=== PATIENT | female | born 1965 | race Hispanic/Latino ===

== ENCOUNTER → 2017-07-31 | Outpatient (CLI) | payer OTHER ==
--- NOTE | 2017-07-31 19:21 | Diagnostic Imaging Report ---
Solid-phase gastric emptying study Reason for examination: Bloating symptoms; heartburn The protocol used for this study is based on the Consensus Recommendations for Gastric Scintigraphy by the [place] [employer] and the Society of [employer]. Clinical information: The patient is not diabetic, possibly pre-diabetic. The patient has not had previous gastrointestinal surgery except for cholecystectomy in 1989. The patient is not on any medications expected to affect gastric motility. The patient has been fasting for at least 6 hours prior to this exam. Radiopharmaceutical: Tc-99m sulfur colloid 1 mCi Report: The radiopharmaceutical was added to 1/2 cup egg whites that were then prepared and served with 2 pieces of white bread toasted, 30 grams of jam and 4 ounces of water. The patient took the meal orally without difficulty. Images were obtained of the abdomen in the anterior and posterior projections at 10 minutes post the meal and at 1and 2 hours. Uptake was determined from the geometric mean of the anterior and posterior counts and the counts were corrected for decay of the radiolabel. The percent gastric retention of the labeled meal at: 1 hour was 61% (normal 30-90%) 2 hours was 28% (normal <60%; if less than 35% at 2 hours, study is normal) Impression: The pattern of gastric emptying is normal. Scan findings do not support the clinical diagnosis of gastroparesis. Signed by: Dr. Loreta Edwards M.D. on 07/31/2017 7:16 PM
== END ==
LOC: NM 09:00
PROVIDERS: ATTEND Internal Medicine Gastroenterology
DX: R14.0 Abdominal distension (gaseous) (principal); R12 Heartburn; Z68.23 Body mass index [BMI] 23.0-23.9, adult
CPT/HCPCS: 78264; A9541